=== PATIENT | female | born 2000 | race Caucasian/White ===

== ENCOUNTER 2023-01-30 14:56 | Emergency (ER) | payer OTHER ==
[2023-01-30 15:12] VITALS: BP 135/75; TEMP 98.1; BMI 20.6
[2023-01-30] MEDS ORDERED: FLUCONAZOLE 150 MG TABLET PO ONE ×2 (16:20→16:35)
[2023-01-30] MEDS ORDERED: ACETAMINOPHEN 500 MG TABLET (FP) PO ONE (16:28)
[2023-01-30] MEDS ORDERED: IBUPROFEN 600 MG TABLET (FP) PO ONE ×2 (16:28→16:35)
[2023-01-30] MEDS ORDERED: ACETAMINOPHEN 500 MG TABLET (FP) ONE (16:35)
[2023-01-30 17:03] VITALS: PULSE 88; RESP 16
== END 2023-01-30 16:45 | disposition home or self-care (01) ==
LOC: JERFT 14:56
DX: N89.8 Other specified noninflammatory disorders of vagina (principal); L29.2 Pruritus vulvae
CPT/HCPCS: 36415; 87070; 87077; 87205; 87491; 87591; 87661; 99283-25